=== PATIENT | female | born 1980 | race Caucasian/White ===

== ENCOUNTER 2020-02-27 14:33 | Outpatient (CLI) | payer MEDICARE, MEDICAID, SELFPAY ==
--- NOTE | ~2020-02-27 | MM_ITS ---
EXAMINATION: MM screening ernesto BI w tyson HISTORY: Screening TECHNIQUE: Craniocaudal and mediolateral oblique 3-D tomosynthesis images were obtained and synthetic 2-D images were generated. CAD analysis was submitted and interpreted. COMPARISON: No prior mammogram is available for comparison at this institution. BREAST PARENCHYMAL COMPOSITION: The breasts are heterogeneously dense, which may obscure small masses . FINDINGS: There is no evidence of suspicious mass, calcification, or architectural distortion to sugg est malignancy in either breast. There has been no suspicious interval change. IMPRESSION: 1. No mammographic evidence of malignancy. 2. Recommend routine screening mammography in one year. BI-RADS Category 1: Negative Reviewed, dictated and finalized at location A.
== END 2020-02-27 14:34 | disposition home or self-care (01) ==
LOC: ANHIMG 14:36
PROVIDERS: PCP Internal Medicine; Visit Provider Obstetrics & Gynecology
DX: Z12.31 Encounter for screening mammogram for malignant neoplasm of breast (principal)
CPT/HCPCS: 77063; 77067

== ENCOUNTER 2020-07-27 09:56 | Outpatient (CLI) | payer MEDICARE, SELFPAY | END 2020-07-27 09:57 | disposition home or self-care (01) | LOC: ANHCOVIDVC 09:56 | PROVIDERS: PCP Internal Medicine | DX: Z23 Encounter for immunization (principal) | CPT/HCPCS: 0001A; 91300 ==

== ENCOUNTER 2020-08-17 09:58 | Outpatient (CLI) | payer MEDICARE, SELFPAY | END 2020-08-17 09:59 | disposition home or self-care (01) | LOC: ANHCOVIDVC 09:58 | PROVIDERS: PCP Internal Medicine | DX: Z23 Encounter for immunization (principal) | CPT/HCPCS: 0002A; 91300 ==

== ENCOUNTER 2021-08-05 08:03 | Outpatient (CLI) | payer MEDICARE, SELFPAY ==
--- NOTE | ~2021-08-05 | MM_ITS ---
EXAMINATION: MM screening ernesto BI w tyson HISTORY: Screening mammogram TECHNIQUE: Craniocaudal and mediolateral oblique 3-D tomosynthesis images were obtained and synthetic 2-D images were generated. CAD analysis was submitted and interpreted. COMPARISON: 02/27/2020 BREAST PARENCHYMAL COMPOSITION: The breasts are heterogeneously dense, which may obscure small masses . FINDINGS: RIGHT BREAST: An asymmetry is present in the middle third of the slightly lower breast 4 cm from the nipple on the mediolateral oblique view. LEFT BREAST: There is no evidence of suspicious mass, calcification, or architectural distortion to s uggest malignancy. There has been no significant interval change. IMPRESSION: 1. Right breast asymmetry. 2. Additional mammographic views and possible breast ultrasound are recommended. BI-RADS Category 0: Incomplete: Needs additional imaging evaluation. Reviewed, dictated and finalized at location A. IMPRESSION: 1. Right breast asymmetry. 2. Additional mammographic views and possible breast ultrasound are recommended . BI-RADS Category 0: Incomplete: Needs additional imaging evaluation.
== END 2021-08-05 08:04 | disposition home or self-care (01) ==
LOC: ANHIMG 08:05
PROVIDERS: PCP Internal Medicine; Visit Provider Obstetrics & Gynecology
DX: Z12.31 Encounter for screening mammogram for malignant neoplasm of breast (principal); R92.8 Other abnormal and inconclusive findings on diagnostic imaging of breast
CPT/HCPCS: 77063; 77067

== ENCOUNTER 2021-08-21 13:43 | Outpatient (CLI) | payer MEDICARE, SELFPAY ==
--- NOTE | ~2021-08-21 | MM_ITS ---
EXAMINATION: MM diagnostic ernesto RT w tyson HISTORY: Right breast asymmetry on screening mammogram TECHNIQUE: Additional 3-D tomosynthesis images of the right breast were performed and synthetic 2-D i mages were generated. CAD analysis was submitted and interpreted. COMPARISON: 08/05/2021, 02/27/2020 FINDINGS: There is a return to baseline fibroglandular appearance with spot compression of the right breast in the area questioned on screening mammogram. IMPRESSION: 1. No mammographic evidence of malignancy. 2. Recommend routine screening mammography in one year. BI-RADS Category 1: Negative Reviewed, dictated and finalized at location A.
== END 2021-08-21 13:44 | disposition home or self-care (01) ==
LOC: ANHIMG 13:44
PROVIDERS: PCP Internal Medicine; Visit Provider Obstetrics & Gynecology
DX: R92.8 Other abnormal and inconclusive findings on diagnostic imaging of breast (principal)
CPT/HCPCS: 77061; 77065; G0279

== ENCOUNTER 2021-11-29 14:57 | Outpatient (CLI) | payer MEDICARE, SELFPAY ==
--- NOTE | ~2021-11-29 | XR_ITS ---
EXAMINATION: XR chest 2V 11/29/2021 15:10 INDICATION: Cough PROCEDURE: 2 view chest COMPARISON: No prior studies for comparison. FINDINGS: The lungs are clear. The cardiomediastinal silhouette is within normal limits. There are no pleural effusions. There is no pneumothorax suspected. IMPRESSION: 1: NO ACUTE CARDIOPULMONARY DISEASE. Reviewed, dictated and finalized at location A.
== END 2021-11-29 14:58 | disposition home or self-care (01) ==
LOC: ANHASCIMG 14:59
PROVIDERS: PCP Internal Medicine; Visit Provider Nurse Practitioner
DX: R05.9 Cough, unspecified (principal)
CPT/HCPCS: 71046

== ENCOUNTER 2021-12-16 10:59 | Outpatient (CLI) | payer MEDICARE, SELFPAY ==
[2021-12-16 16:29] LABS: Basophils Percent Auto 0.8 % (0.2-1.2); Eosinophils Absolute Auto 0.1 K/mm3 (0-0.3); Eosinophils Percent Auto 2.5 % (0-4.4); Hematocrit 43.4 % (37.0-47.0); Hemoglobin 13.9 g/dL (12.0-15.0); Immature Granulocyte Absolute 0.01 K/mm3 (0.00-0.031); Immature Granulocyte Percent A 0.2 % (0-0.5); Lymphocytes Absolute Auto 1.41 K/mm3 (0.9-3.2); Lymphocytes Percent Auto 27.1 % (18.3-44.2); Mean Corpuscular Hemoglobin 29.4 pg (26-34); Mean Corpuscular Volume 91.9 fl (80-100); Mean Platelet Volume 11.7 fl (7.4-10.4); Monocytes Absolute Auto 0.5 K/mm3 (0.1-0.6); Monocytes Percent Auto 8.8 % (2.6-8.5); Neutrophils Absolute Auto 3.2 K/mm3 (1.3-6.7); Neutrophils Percent Auto 60.6 % (45.5-73.1); Platelet Count Result 224 k/mm3 (150-375); Red Blood Count 4.72 M/mm3 (4.2-5.4); Red Cell Distribution Width 13.6 % (11.5-14.5); White Blood Count 5.2 K/mm3 (4.5-10.0)
[2021-12-16 17:35] LABS: Alanine Aminotransferase 11 U/L (6-35); Albumin Level 4.5 g/dL (3.5-5.1); Alkaline Phosphatase 70 U/L (38-126); Anion Gap 10 mmol/L (8-16); Aspartate Amino Transferase 26 U/L (14-36); Bilirubin,Total 0.4 mg/dL (0.2-1.3); Blood Urea Nitrogen 14 mg/dL (7-17); Calcium 9.9 mg/dL (8.4-10.2); Carbon Dioxide 26 mmol/L (22-30); Chloride 104 mmol/L (98-107); Cholesterol 198 mg/dL (0-200); Estimated Glomerular Filt Rate > 60; Glucose 90 mg/dL (65-110); HDL Direct 37 mg/dL; Sodium 140 mmol/L (137-145); Triglycerides 52 mg/dL (<150)
[2021-12-16 17:47] LABS: LDL Cholesterol Direct 135 mg/dL
== END 2021-12-16 11:00 | disposition home or self-care (01) ==
LOC: ANHGOSHLAB 11:00
PROVIDERS: PCP Internal Medicine; Visit Provider Nurse Practitioner
DX: Z13.220 Encounter for screening for lipoid disorders (principal); Z13.29 Encounter for screening for other suspected endocrine disorder
CPT/HCPCS: 36415; 80053; 80061; 85025

== ENCOUNTER 2022-05-27 10:25 | Outpatient (CLI) | payer MEDICARE, SELFPAY | END 2022-05-27 10:26 | disposition home or self-care (01) | LOC: ANHGOSHLAB 10:27 | PROVIDERS: PCP Internal Medicine; Visit Provider Nurse Practitioner | DX: E03.9 Hypothyroidism, unspecified (principal) | CPT/HCPCS: 36415; 84443 ==

== ENCOUNTER → 2022-05-27 10:43 | Outpatient (CLI) | payer MEDICARE, SELFPAY ==
--- NOTE | ~2022-05-27 | XR_ITS ---
Right Humerus Technique: AP and lateral views were obtained. Clinical History: Pain Findings: No fracture or dislocation is seen. Osseous alignment is anatomic. Visualized joint spaces are grossly preserved. Soft tissues are unremarkable. Impression: Unremarkable examination. No fracture or dislocation. Reviewed, dictated and finalized at location . GE ENTRY Impression: Unremarkable examination. No fracture or dislocation.
--- NOTE | ~2022-05-27 | XR_ITS ---
Right Shoulder Technique: AP and scapular Y views were obtained. Clinical History: Pain Findings: No fracture or dislocation is seen. Osseous alignment is anatomic. The glenohumeral and acr omioclavicular joint spaces are preserved. Soft tissues are unremarkable. Impression: Unremarkable right shoulder radiographs. Reviewed, dictated and finalized at [facility]. 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
== END ==
PROVIDERS: PCP Nurse Practitioner; Visit Provider Nurse Practitioner
DX: M25.511 Pain in right shoulder (principal); M79.601 Pain in right arm
CPT/HCPCS: 73030; 73060

== ENCOUNTER 2022-06-23 09:47 | Outpatient (RCR) | payer MEDICARE, MEDICAID, SELFPAY ==
--- NOTE | 2022-06-23 16:15 | PTOPEVAL1 ---
Assessment and note entered by Mingo Collins, PT Evaluation Information Assessment Status Evaluation Diagnosis R shoulder pain Onset 1 month ago Subjective Information Thomas and her moth report about a month ago she started having R shoulder pain which has decreased since she started taking prescription medications . She does not recall any falls or triggering event for the pain. The pain has gone down to the middle of her deltoid. Her mother has been wrapping it with an deepali wrap and patient has been using a heating pad on occasion. 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 Reported Pain Level Pain Score 10: Self Report Assessment PT Clinical Summary Thomas is a 42 year old female coming into the clinic for R shoulder pain. She has pain with resisted abduction and empy can tests. Patient's spasticity causes her the have her R arm in overhead position a lot. Physical therapy will work with the patient in improving posture, strengthening of the rotator cuff and improved range of motion. Modalities and manual therapy as needed for pain control. Plan of Care Interventions Electrical Stimulation,Gait Training,Hot Pack/Cold Pack,Manual Therapy,Neuro Re-education,Patient/ Caregiver Education,Therapeutic Activities, Therapeutic Exercise,Ultrasound Other Interventions taping PT Services Indicated Yes Treatment Frequency and 1-2x/wk for 4 weeks Duration These treatments will address the objective and functional deficits as defined above. The patient will be advanced safely and appropriately in order for the patient to progress towards his/her prior level of function. Additional exercises will be introduced and as well as a comprehensive home exercise program upon discharge, if needed, ?to ensure carryover of functional gains achieved in the clinic. This treatment plan has been reviewed and agreement upon by the patient.
--- NOTE | 2022-08-05 12:42 | PTOPDC ---
Assessment and note entered by Mingo Collins, PT Evaluation Information Assessment Status Discharge - Pt Not Present Diagnosis R shoulder pain Onset 1 month ago Subjective Information Patient was evaluated for R shoulder pain and given exercises as part of an HEP. According to mother she was unable to get in to be seen for followup appointments secondary to inability that would find a time that would allow a time to have the mother drive her in for appointments. Mother reports they are getting an MRI and seeing a surgeon about possible surgical interventions.
== END 2022-09-08 09:06 | disposition home or self-care (01) ==
LOC: ANHPT 09:47
PROVIDERS: PCP Nurse Practitioner; Visit Provider Nurse Practitioner
DX: M79.601 Pain in right arm (principal)
CPT/HCPCS: 97110; 97161

== ENCOUNTER → 2022-09-09 13:04 | Outpatient (CLI) | payer MEDICARE, MEDICAID, SELFPAY ==
--- NOTE | ~2022-09-09 | MR_ITS ---
MRI of the right shoulder Technique: Axial proton-density fat-sat images, coronal proton density fat-sat and T2 fat-sat images, and sagittal T1-weighted and T2 fat-sat images were acquired. Clinical History: Pain Findings: Examination is limited by motion artifact on all sequences. There is mild AC joint degenerative change. Coracoclavicular, coracoacromial, coracohumeral ligaments are probably intact. There is probable mild tendinosis of the distal supraspinatus tendon. No partial or full-thickness te ar of the supraspinatus or infraspinatus tendon identified. Subscapularis tendon demonstrates suspect ed focal high-grade partial versus full-thickness tearing superiorly. Tendon of long head of the burton ps is intact. Clinically was poorly evaluated due to motion artifact. Suspected extensive degenerative attenuation of the anterior labrum. Inferior glenohumeral ligament is probably intact. There is probable mild degenerative change of the glenohumeral joint. No fluid distention of the subacromial/subdeltoid bursa. No definite muscle atrop hy or edema. Impression: Limited exam due to motion artifact. Suspected high-grade partial versus full-thickness tearing at the superior aspect of the subscapulari s tendon. Mild glenohumeral joint degenerative change. Reviewed, dictated and finalized at location . Impression: Limited exam due to motion artifact. Suspected high-grade partial versus full-thickness tearing at the superior aspe ct of the subscapularis tendon. Mild glenohumeral joint degenerative change.
== END ==
PROVIDERS: PCP Internal Medicine; Visit Provider Nurse Practitioner
DX: M25.511 Pain in right shoulder (principal); R93.6 Abnormal findings on diagnostic imaging of limbs
CPT/HCPCS: 73221

== ENCOUNTER 2022-11-03 09:52 | Outpatient (CLI) | payer MEDICARE, MEDICAID, SELFPAY ==
--- NOTE | ~2022-11-03 | MM_ITS ---
EXAMINATION: MM screening ernesto BI w tyson HISTORY: Screening mammogram TECHNIQUE: Craniocaudal and mediolateral oblique 3-D tomosynthesis images were obtained and synthetic 2-D images were generated. (Right CC 2-D view was performed. Tomosynthesis was not possible because the patient had right arm spasms causing motion on attempted right Tomosynthesis imaging.) CAD analys is was submitted and interpreted. COMPARISON: 08/21/2021 diagnostic right mammogram 08/05/2021, 02/27/2020 bilateral screening mammogram examinations BREAST PARENCHYMAL COMPOSITION: The breasts are heterogeneously dense, which may obscure small masses . FINDINGS: There is no evidence of suspicious mass, calcification, or architectural distortion to sugg est malignancy in either breast. There has been no suspicious interval change. IMPRESSION: 1. No mammographic evidence of malignancy. 2. Recommend routine screening mammography in one year. BI-RADS Category 1: Negative Reviewed, dictated and finalized at location A.
== END 2022-11-03 09:53 | disposition home or self-care (01) ==
LOC: ANHIMG 09:54
PROVIDERS: PCP Internal Medicine; Visit Provider Obstetrics & Gynecology
DX: Z12.31 Encounter for screening mammogram for malignant neoplasm of breast (principal)
CPT/HCPCS: 77063; 77067

== ENCOUNTER 2022-12-29 10:48 | Outpatient (CLI) | payer MEDICARE, MEDICAID, SELFPAY ==
[2022-12-29 13:38] LABS: Basophils Percent Auto 0.6 % (0.2-1.2); Eosinophils Absolute Auto 0.1 K/mm3 (0-0.3); Eosinophils Percent Auto 2.7 % (0-4.4); Hematocrit 44.2 % (37.0-47.0); Hemoglobin 13.7 g/dL (12.0-15.0); Immature Granulocyte Absolute 0.02 K/mm3 (0.00-0.031); Immature Granulocyte Percent A 0.4 % (0-0.5); Lymphocytes Absolute Auto 1.38 K/mm3 (0.9-3.2); Lymphocytes Percent Auto 28.9 % (18.3-44.2); Mean Corpuscular Hemoglobin 28.6 pg (26-34); Mean Corpuscular Volume 92.3 fl (80-100); Mean Platelet Volume 11.5 fl (7.4-10.4); Monocytes Absolute Auto 0.5 K/mm3 (0.1-0.6); Monocytes Percent Auto 9.4 % (2.6-8.5); Neutrophils Absolute Auto 2.8 K/mm3 (1.3-6.7); Platelet Count Result 223 k/mm3 (150-375); Red Blood Count 4.79 M/mm3 (4.2-5.4); Red Cell Distribution Width 13.2 % (11.5-14.5); White Blood Count 4.8 K/mm3 (4.5-10.0)
[2022-12-29 13:44] LABS: Alanine Aminotransferase 15 U/L (6-35); Albumin Level 4.4 g/dL (3.5-5.1); Alkaline Phosphatase 74 U/L (38-126); Anion Gap 5 mmol/L (8-16); Aspartate Amino Transferase 33 U/L (14-36); Bilirubin,Total 0.6 mg/dL (0.2-1.3); Blood Urea Nitrogen 14 mg/dL (7-17); Calcium 9.9 mg/dL (8.4-10.2); Carbon Dioxide 28 mmol/L (22-30); Chloride 104 mmol/L (98-107); Cholesterol 183 mg/dL (0-200); Estimated Glomerular Filt Rate > 60; Glucose 92 mg/dL (65-110); HDL Direct 35 mg/dL; Potassium 4.7 mmol/L (3.4-5.0); Sodium 137 mmol/L (137-145); Triglycerides 59 mg/dL (<150)
[2022-12-29 13:55] LABS: LDL Cholesterol Direct 114 mg/dL
[2022-12-29 14:24] LABS: Free T4 Free Thyroxine 1.45 ng/mL (0.78-2.19); Vitamin D 25 Hydroxy 55.4 ng/mL
== END 2022-12-29 10:49 | disposition home or self-care (01) ==
PROVIDERS: PCP Internal Medicine; Visit Provider Clinical Nurse Specialist
DX: Z13.29 Encounter for screening for other suspected endocrine disorder (principal); E03.9 Hypothyroidism, unspecified; Z13.220 Encounter for screening for lipoid disorders; E55.9 Vitamin D deficiency, unspecified
CPT/HCPCS: 36415; 80053; 80061; 82306; 84439; 84443; 85025

== ENCOUNTER 2024-01-12 10:01 | Outpatient (CLI) | payer MEDICARE, MEDICAID, SELFPAY ==
--- NOTE | ~2024-01-12 | MM_ITS ---
EXAMINATION: MM screening ernesto BI w tyson HISTORY: Screening TECHNIQUE: Craniocaudal and mediolateral oblique 3-D tomosynthesis images were obtained and synthetic 2-D images were generated. CAD analysis was submitted and interpreted. COMPARISON: Comparison to multiple prior studies sequentially, with oldest reviewed study dated 09/2019. BREAST PARENCHYMAL COMPOSITION: Dense: The breasts are heterogeneously dense, which may obscure small masses FINDINGS: There is no evidence of suspicious mass, calcification, or architectural distortion to sugg est malignancy in either breast. There has been no suspicious interval change. IMPRESSION: 1. No mammographic evidence of malignancy. 2. Recommend routine screening mammography in one year. BI-RADS Category 1: Negative Reviewed, dictated and finalized at location B.
== END 2024-01-12 10:02 | disposition home or self-care (01) ==
LOC: ANHIMG 10:02
PROVIDERS: PCP Internal Medicine; Visit Provider Obstetrics & Gynecology
DX: Z12.31 Encounter for screening mammogram for malignant neoplasm of breast (principal)
CPT/HCPCS: 77063; 77067

== ENCOUNTER 2024-02-24 09:02 | Outpatient (CLI) | payer MEDICARE, MEDICAID, SELFPAY ==
[2024-02-24 09:33] LABS: Basophils Absolute Auto 0.1 K/mm3 (0.0-0.1); Basophils Percent Auto 0.9 % (0.2-1.2); Eosinophils Absolute Auto 0.1 K/mm3 (0-0.3); Eosinophils Percent Auto 2.3 % (0-4.4); Hematocrit 45.9 % (37.0-47.0); Hemoglobin 14.4 g/dL (12.0-15.0); Immature Granulocyte Absolute 0.02 K/mm3 (0.00-0.031); Immature Granulocyte Percent A 0.4 % (0-0.5); Lymphocytes Absolute Auto 1.34 K/mm3 (0.9-3.2); Lymphocytes Percent Auto 25.3 % (18.3-44.2); Mean Corpuscular HGB Conc 31.4 g/dl (32-36); Mean Corpuscular Hemoglobin 29.3 pg (26-34); Mean Corpuscular Volume 93.5 fl (80-100); Mean Platelet Volume 10.8 fl (7.4-10.4); Monocytes Absolute Auto 0.4 K/mm3 (0.1-0.6); Monocytes Percent Auto 8.1 % (2.6-8.5); Neutrophils Absolute Auto 3.3 K/mm3 (1.3-6.7); Platelet Count Result 243 k/mm3 (150-375); Red Blood Count 4.91 M/mm3 (4.2-5.4); Red Cell Distribution Width 13.2 % (11.5-14.5); White Blood Count 5.3 K/mm3 (4.5-10.0)
[2024-02-24 09:44] LABS: Alanine Aminotransferase 14 U/L (6-35); Albumin Level 4.8 g/dL (3.5-5.1); Alkaline Phosphatase 69 U/L (38-126); Anion Gap 10 mmol/L (4-12); Aspartate Amino Transferase 26 U/L (14-36); Bilirubin,Total 0.6 mg/dL (0.2-1.3); Blood Urea Nitrogen 11 mg/dL (7-17); Calcium 9.4 mg/dL (8.4-10.2); Carbon Dioxide 26 mmol/L (22-30); Chloride 105 mmol/L (98-107); Cholesterol 201 mg/dL (0-200); Estimated Glomerular Filt Rate > 60; Glucose 97 mg/dL (65-110); HDL Direct 44 mg/dL; Potassium 4.7 mmol/L (3.4-5.0); Sodium 141 mmol/L (137-145); Triglycerides 73 mg/dL (<150)
[2024-02-24 09:54] LABS: LDL Cholesterol Direct 131 mg/dL
[2024-02-24 10:55] LABS: Free T4 Free Thyroxine 1.28 ng/mL (0.78-2.19); Vitamin D 25 Hydroxy 44.4 ng/mL
== END 2024-02-24 09:03 | disposition home or self-care (01) ==
LOC: ANHLAB 09:09
PROVIDERS: PCP Internal Medicine; Visit Provider Clinical Nurse Specialist
DX: G80.9 Cerebral palsy, unspecified (principal); E03.9 Hypothyroidism, unspecified; E55.9 Vitamin D deficiency, unspecified; Z13.29 Encounter for screening for other suspected endocrine disorder; Z13.220 Encounter for screening for lipoid disorders
CPT/HCPCS: 36415; 80053; 80061; 82306; 84439; 84443; 85025

== ENCOUNTER 2025-02-20 11:03 | Outpatient (CLI) | payer MEDICARE, MEDICAID, SELFPAY ==
--- OUTSIDE RECORDS SUMMARY | 2025-02-20 11:44 | XMS_ITS | Clinical Summary ---
Author Organization [facility] Address [address] [place] [id number] Care Team Providers Care Die Repair Name Role Phone Kit Archibald DO Primary Care Provider [phone]- [phone] Allergies No known active allergies Medications montelukast (SINGULAIR) 10 mg tablet Take 1 tablet (10 mg total) by mouth daily 02/03/2023 Active LORazepam (ATIVAN) 0.5 mg tablet Take by mouth daily as needed prn 12/29/2022 Active Slynd tablet tablet 01/01/2023 Active baclofen (LIORESAL) 10 mg tablet Take 1 tablet (10 mg total) by mouth once PRN Active Hospital, Clinic, or Other Facility Administered Medication Ordered Dose Route Frequency Start Date End Date Status onabotulinumtoxin A (BOTOX) injection 100 UnitsIndications:Muscle spasticity 100 Units IM Once 02/22/2025 02/23/2025 Active Active Problems No known active problems Encounters Date Type Department Care Team Description 02/08/2025 Orders Only [facility] Medicine Orthopaedic Surgery [address] [place] [address] [place] [address] Janiya Morrissey NP Muscle spasticity (Primary Dx) 01/27/2025 Telephone [facility] Medicine Orthopaedic Surgery [address] [place] [address] [place] [address] Clifton Goodson MD Scheduling Appointments from Last 3 Months Surgical History Surgery Date Site/Laterality Comments FLUORO GUIDED ASPIRATION OR INJECTION LARGE JOINT RIGHT 09/29/2023 Right Social History Tobacco Use Types Packs/Day Years Used Date Smoking Tobacco: Never Tobacco Cessation:Counseling Given: Not Answered Comments Unknown Sex and Gender Information Value Date Recorded Sex Assigned at Not on file 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 Gender Identity Not on file Sexual Orientation Not on file Obstetrics History Last Filed Vital Signs Vital Sign Reading Time Taken Comments Blood Pressure 166/89 11/16/2024 12:29 PM CDT Pulse 109 11/16/2024 12:29 PM CDT Temperature - - Respiratory Rate 16 09/29/2023 1:34 PM CDT Oxygen Saturation - - Inhaled Oxygen Concentration - - Weight 73.5 kg (162 lb) 11/16/2024 12:29 PM CDT Height 162.6 cm (5' 4) 08/24/2023 2:15 PM CDT Body Mass Index 27.81 08/24/2023 2:15 PM CDT Plan of Treatment Health Maintenance Due Date Last Done Comments Breast Cancer Screening-Mammogram 1980 Cervical Cancer Screening 1980 Depression Screening 1980 Hepatitis C Screening 1980 DTaP/Tdap/Td Vaccine (1 - Tdap) 1991 Varicella Vaccines (1 of 2 - 13+ 2-dose series) 1993 Hepatitis B Screening 1998 Regular Well Visit/Exam 18-64 1998 HPV Vaccines (1 - 3-dose SCDM series) 2007 Covid-19 Vaccine ( season) 2025 04/08/2021, 08/17/2020, 07/27/2020 Influenza Vaccine (#1) 2025 2, 04/08/2021, 03/21/2020, Additional history exists Pneumococcal vaccine <65 Aged Out No longer eligible based on patient's age to complete this topic Insurance [employer] MEDICARE GOLD IDPA [employer] MEDICARE GOLD IDID Care Teams Die Repair Relationship Specialty Start Date End Date Kit Archibald DO PCP - General Internal Medicine 09/16/23
--- OUTSIDE RECORDS SUMMARY | 2025-02-20 11:44 | XMS_ITS | Clinical Summary ---
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 Gender Identity Not on file Sexual Orientation Not on file Plan of Treatment Health Maintenance Due Date Last Done Comments Cervical Cancer Screening Pa p Smear (Age 30 to 64) Every 3 Years 1980 Annual Physical 1983 Hepatitis C 1998 DTaP, Tdap and Td Vaccines ( 1 - Tdap) 1999 Hepatitis B Vaccines (1 of 3 - 19+ 3-dose series) 1999 HPV Vaccines (1 - 3-dose SCD M series) 2007 Cervical Cancer Screening Pa p with HPV Testing (Age 30 to 64) Every 5 Years 2010 Cervical Cancer Screening with HPV 2010 Mammogram Screening 2020 COVID-19 Vaccine (2023-2 5 season) 2025 Meningococcal B Vaccine Aged Out No l onger eligible based on patient's age to complete this topic Meningococcal Vaccine Aged Out No ary mirna eligible based on patient's age to complete this topic Pneumococcal Vaccine: Pediat rics (0 to 5 Years) and At-Risk Patients (6 to 49 Years) Aged Out No longer eligible b ased on patient's age to complete this topic RSV Immunizations Under 20 Months Aged Out No longer eligible based on patient's age to complete this topic
[2025-02-20 12:59] LABS: Hematocrit 45.2 % (37.0-47.0); Hemoglobin 14.0 g/dL (12.0-15.0); Immature Granulocyte Percent A 0.4 % (0-0.5); Lymphocytes Absolute Auto 1.12 K/mm3 (0.9-3.2); Mean Corpuscular HGB Conc 31.0 g/dl (32-36); Mean Corpuscular Hemoglobin 28.9 pg (26-34); Mean Corpuscular Volume 93.2 fl (80-100); Nucleated Red Blood Cells Absolute Auto 0.000 K/mm3 (0.0-0.012); Nucleated Red Blood Cells Perc 0.0 % (0.0-0.2); Platelet Count Result 243 k/mm3 (150-375); Red Blood Count 4.85 M/mm3 (4.2-5.4); White Blood Count 4.9 K/mm3 (4.5-10.0)
[2025-02-20 13:10] LABS: Alanine Aminotransferase 11 U/L (6-35); Albumin Level 4.5 g/dL (3.5-5.1); Alkaline Phosphatase 64 U/L (38-126); Anion Gap 9 mmol/L (4-12); Aspartate Amino Transferase 26 U/L (14-36); Bilirubin,Total 0.4 mg/dL (0.2-1.3); Blood Urea Nitrogen 10 mg/dL (7-17); Calcium 9.3 mg/dL (8.4-10.2); Carbon Dioxide 25 mmol/L (22-30); Chloride 106 mmol/L (98-107); Cholesterol 174 mg/dL (0-200); Estimated Glomerular Filt Rate > 60; Glucose 92 mg/dL (65-110); HDL Direct 35 mg/dL; Potassium 4.7 mmol/L (3.4-5.0); Sodium 140 mmol/L (137-145); Total Protein 7.7 g/dL (6.3-8.2); Triglycerides 51 mg/dL (<150)
[2025-02-20 13:28] LABS: Free T3 4.75 pg/mL (2.71-6.16); Free T4 Free Thyroxine 1.25 ng/dL (0.78-2.19)
[2025-02-20 13:47] LABS: Thyroid Stimulating Hormone 2.420 uIU/mL (0.465-4.680)
== END 2025-02-20 11:04 | disposition home or self-care (01) ==
PROVIDERS: PCP Internal Medicine; Visit Provider Clinical Nurse Specialist
DX: E03.9 Hypothyroidism, unspecified (principal); G80.9 Cerebral palsy, unspecified; Z13.29 Encounter for screening for other suspected endocrine disorder; Z13.220 Encounter for screening for lipoid disorders; R73.01 Impaired fasting glucose
CPT/HCPCS: 36415; 80053; 80061; 82306; 84439; 84443; 84481; 85025

== ENCOUNTER 2025-05-19 00:12 | Day surgery (SDC) | payer MEDICARE, MEDICAID, SELFPAY ==
[2025-04-27 10:28] VITALS: BMI 29.5
--- OUTSIDE RECORDS SUMMARY | 2025-05-19 00:17 | XMS_ITS | Clinical Summary ---
Author Organization [facility] Address [address] [place] [address] Care Team Providers Care Soda Clerk Name Role Phone Kit Archibald DO Primary Care Provider +1- [phone] Allergies No known active allergies Medications montelukast (SINGULAIR) 10 mg tablet Take 1 tablet (10 mg total) by mouth daily 02/03/2023 Active LORazepam (ATIVAN) 0.5 mg tablet Take by mouth daily as needed prn 12/29/2022 Active Slynd tablet tablet 01/01/2023 Active baclofen (LIORESAL) 10 mg tablet Take 1 tablet (10 mg total) by mouth once PRN Active Active Problems No known active problems Encounters Date Type Department Care Team Description 02/22/2025 10:00 AM CDT Office Visit [facility] Orthopaedic Surgery [address] [facility] [address] [place] [address] [place] [id number] Janiya Morrissey NP Muscle spasticity (Primary Dx); Spastic hemiparesis (HCC); [place] 02/22/2025 Orders Only [facility] Orthopaedic Surgery [address] 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 Gender Identity Not on file Sexual Orientation Not on file Last Filed Vital Signs Vital Sign Reading Time Taken Comments Blood Pressure 165/93 02/22/2025 9:54 AM CDT Pulse 98 02/22/2025 9:54 AM CDT Temperature - - Respiratory Rate 16 09/29/2023 1:34 PM CDT Oxygen Saturation - - Inhaled Oxygen Concentration - - Weight 73.2 kg (161 lb 6.4 oz) 02/22/2025 9:54 A M CDT Height 162.6 cm (5' 4) 08/24/2023 2:15 PM CDT Body Mass Index 27.7 08/24/2023 2:15 PM CDT Plan of Treatment Health Maintenance Due Date Last Done Comments Breast Cancer Screening-Mammogram 1980 Cervical Cancer Screening 1980 Colon Cancer Screening-Colonoscopy 1980 Depression Screening 1980 Hepatitis C Screening [...] on patient's age to complete this topic Procedures Procedure Name Priority Date/Time Associated Diagnosis Comments BOTOX INJECTION Routine 02/22/2025 10:00 AM CDT Muscle spasticity from Last 3 Months Results * Botox Injection (02/22/2025 10:00 AM CDT) Narrative Janiya Morrissey NP - 02/22/2025 10:00 AM CDT Janiya Morrissey NP 02/22/2025 11:50 AM Botox Injection Performed by: Janiya Morrissey NP Authorized by: Janiya Morrissey NP [place] Protocol: Consent Given by: Patient Procedure Details - Botox Injection: Procedure Details: Specialty Pharmacy; Right Lower Extremity: Tibialis posterior - 100 units over 2 sites 100 Units onabotulinumtoxin A (botulinum toxin type A, BOTOX) 100 unit injection Janiya Morrissey CHEMICAL PLANT OPERATOR SUPERVISOR IN CLINIC/BEDSIDE ORDERABL ES Edited Result - Final from Last 3 Months Insurance [facility] IDPA Care Teams Soda Clerk Relationship Specialty Start Date End Date Kit Archibald DO PCP - General Internal Medicine 09/16/23
[2025-05-19 09:47] VITALS: BP 145/96; PULSE 114; RESP 18; TEMP 36.5; O2SAT 99
--- NOTE | 2025-05-19 09:52 | SUR.PREOP ---
0950: DR WELCH NOTIFIED PT HAS CEREBRAL PALSY, PT AND PT MOTHER STATE PT IS NOT SEXUALLY ACTIVE, ORDER RECEIVED TO WAIVE BEDSIDE TEST PER DR WELCH.
--- NOTE | 2025-05-19 10:29 | P.PNAN_ITS ---
Anes - Initial Pre Proc Eval Procedure: Operation Date: 05/19/25 11:00 Proposed Procedures p Screening Colonoscopy - Juan Baugh MD Date/Time: 05/19/25 10:29 Surgeon: Juan Baugh MD Pre Op Diagnosis: Screening Patient Data Age: 45 Gender: F Height: 1.63 m Weight: 70 kg Last Vital Signs Temp 36.5 C 05/19/25 09:47 Pulse 114 H 05/19/25 09:47 Resp 18 05/19/25 09:47 BP 145/96 H 05/19/25 09:47 Pulse Ox 99 05/19/25 09:47 O2 Del Method Room Air 05/19/25 09:47 Allergies Allergy/AdvReac Type Severity Reaction Status Date / Time No Known Allergies Allergy Mild Verified 05/19/25 09:46 Home Medications ?Medication ?Instructions ?Recorded ?Confirmed ?Type cetirizine 10 mg tablet (Zyrtec) 10 mg PO DAILY 05/19/25 History multivitamin 1 tablet PO DAILY 11/15/19 1 07/20/24 History ascorbate calcium (vitamin C) 500 500 mg PO DAILY 10/2405/19/25 History mg tablet lorazepam 0.5 mg tablet 0.5 mg PO DAILY PRN spasms # 20 tabs 02/24/23 04/27/25 Rx cyclobenzaprine 10 mg tablet 10 mg PO Q12H PRN muscle spasm #30 02/16/24 04/27/25 Rx tabs norethindrone (contraceptive) 0.35 0.35 mg PO DAILY #8 4 tabs 09/14/24 05/19/25 Rx mg tablet (Pepper) montelukast 10 mg tablet 10 mg PO DAILY #90 tabs 12/2405/19/25 Rx baclofen 10 mg tablet See Rx Instructions .Route 0 02/20/25 04/27/25 History .COMPLEX PRN Muscle spasms onabotulinumtoxinA 100 unit unit IM 02/20/25 02/20/25 History solution for injection (Botox) Patient hx anesthesia problems: none Family hx anesthesia problems: none Results Review: All pre-operative results and documents have been reviewed as part of the pre- operative evaluation. [facility] Past Medical History Medical History Sinusitis Cough Meningitis Headache Hypothyroidism Cerebral palsy Dermatitis Surgical History Surgical History H/O breast biopsy History of orthopedic surgery Family History Family History Grandparent Family history of obesity Hypertension Family history of chronic obstructive pulmonary disease Diabetes mellitus Family history of lung cancer Father Hypertension Sibling Hypertension Other Family history of elevated blood lipids Family history of malignant neoplasm of cervix Social History Social History Smoking status: Never smoker Second hand tobacco smoke exposure: No Alcohol intake: current Lack of Transportation: No Lack of Food: Never True Current Housing: I Have Housing Concerned About Future Housing: No Difficulty Paying Gas/Electric Bills: No Difficulty Paying for Meds: No Currently Unemployed: No Education: Associate Degree Difficulty w/ Childcare or Family Care: No Anes - Eval Final PreProcedure Day of Procedure 05/19/25 10:29 Patient weight: overweight Heart: regular rate and rhythm Lungs: clear to auscultation Airway: Mallampati scale class III Neurological: alert and oriented Last oral intake: >/= 8 hours ASA classification: III Emergent: no Anesthetic plan: proceed Anesthesia type and monitoring: general GIVS and standard monitoring Results Review: All pre-operative results and documents have been reviewed as part of the pre- operative evaluation. Informed Consent: The patient's anesthetic plan and its attendant risks and benefits were discussed with the patient/family/POA. Questions were solicited and answers provided to the satisfaction of the patient/family/POA.
[2025-05-19] MEDS: LACTATED RINGERS 1,000 ML 150 ML IV CONT (10:37)
--- NOTE | 2025-05-19 10:44 | PM.HPGS ---
History of Present Illness History of Present Illness Consent: Risks, benefits, and alternatives have been discussed and questions answered. Patient agrees to proceed with procedure. Chief complaint: Screening Narrative: Thomas Isabel is a 45 year old female Review of Systems Review of Systems: All 11 the symptoms are negative except the ones mentioned in the H&P. [facility] Past Medical History Medical History Sinusitis Cough Meningitis Headache Hypothyroidism Cerebral palsy Dermatitis Surgical History Surgical History H/O breast biopsy History of orthopedic surgery Family History Family History Grandparent Family history of obesity Hypertension Family history of chronic obstructive pulmonary disease Diabetes mellitus Family history of lung cancer Father Hypertension Sibling Hypertension Other Family history of elevated blood lipids Family history of malignant neoplasm of cervix Social History Social History Smoking status: Never smoker Second hand tobacco smoke exposure: No Alcohol intake: current Lack of Transportation: No Lack of Food: Never True Current Housing: I Have Housing Concerned About Future Housing: No Difficulty Paying Gas/Electric Bills: No Difficulty Paying for Meds: No Currently Unemployed: No Education: Associate Degree Difficulty w/ Childcare or Family Care: No Meds Home Medications and Allergies Home Medications ?Medication ?Instructions ?Recorded ?Confirmed ?Type cetirizine 10 mg tablet (Zyrtec) 10 mg PO DAILY 11/15/19 05/19/25 History multivitamin 1 tablet PO DAILY 11/15/19 05/19/25 History ascorbate calcium (vitamin C) 500 500 mg PO DAILY 11/13/20 05/19/25 History mg tablet lorazepam 0.5 mg tablet 0.5 mg PO DAILY PRN spasms #20 tabs 02/24/23 04/27/25 Rx cyclobenzaprine 10 mg tablet 10 mg PO Q12H PRN muscle spasm #30 02/16/24 04/27/25 Rx tabs norethindrone (contraceptive) 0.35 0.35 mg PO DAILY #84 tabs 09/14/24 05/19/25 Rx mg tablet (Pepper) montelukast 10 mg tablet 10 mg PO DAILY #90 tabs 01/19/25 05/19/25 Rx baclofen 10 mg tablet See Rx Instructions .Route 02/20/25 04/27/25 History .COMPLEX PRN Muscle spasms onabotulinumtoxinA 100 unit unit IM 02/20/25 02/20/25 History solution for injection (Botox) Allergies Allergy/AdvReac Type Severity Reaction Status Date / Time No Known Allergies Allergy Mild Verified 05/19/25 09:46 Vital Signs Vital Signs - 24 hr 05/19/25 09:47 Temperature 97.7 F Pulse Rate 114 H Respiratory Rate 18 Blood Pressure 145/96 H Pulse Oximetry 99 Oxygen Delivery Room Air Exam Narrative: Normal physical exam. Assessment and Plan Assessment and plan (1) Screening for colon cancer: Code(s): Z12.11 - Encounter for screening for malignant neoplasm of colon Status: Acute Plan 45-year-old female who is here for screening colonoscopy.
--- NOTE | 2025-05-19 11:00 | S_PTH ---
PATIENT: Thomas Isabel LOC: [facility]#:[id number] AGE/SX: 45/F ROOM: RE05/19/[address]: Juan Baugh MD : 1980 BED: DIS: 05/19/2025 SPEC #: [id number] RECD: 05/19/25 11:34 STATUS: IMTIAZ REJacob #: [id number] MILKA: 05/19/25 11:[address]: Tevin Mc DEPT: [facility] Surgical RECD BY: Jammie Rice ENTERED: 05/19/25 11:35 SP TYPE: Surgical OTHR DR: MD Kit Tomlin, Tissues: A - Colon Polypectomy B - Colon Polypectomy Procedures: Hematoxylin and Eosin Stain Gross and Microscopic Level 4
[2025-05-19 11:01] VITALS: BP 103/65; PULSE 85; RESP 25; O2SAT 96
[2025-05-19 11:11] VITALS: BP 117/52; PULSE 89; RESP 21; O2SAT 100
[2025-05-19 11:21] VITALS: BP 124/76; PULSE 80; RESP 25; O2SAT 100
== END 2025-05-19 11:31 | disposition home or self-care (01) ==
PROVIDERS: Internal Medicine Gastroenterology; PCP Internal Medicine; Referring Provider Clinical Nurse Specialist; Visit Provider Internal Medicine Gastroenterology
PROC: 0DJD8ZZ Inspection of Lower Intestinal Tract, Via Natural or Artificial Opening Endoscopic (ICD-10-PCS; CPT 45378; principal; 2025-05-19 11:00)
DX: Z12.11 Encounter for screening for malignant neoplasm of colon (principal); D12.3 Benign neoplasm of transverse colon; D12.8 Benign neoplasm of rectum
CPT/HCPCS: 45385; 45380; 88305; J2704; J7120